=== PATIENT | female | born 1990 | race American Indian/Alaskan Native ===

== ENCOUNTER 2017-10-17 15:37 | Emergency (ER) | payer OTHER ==
[2017-10-17 15:57] VITALS: BP 131/81
--- NOTE | 2017-10-17 17:01 | Emergency Department Report ---
ED Dysuria HPI - HPI Chief Complaint: Urogenital-Female Stated Complaint: VAGINAL DISCHARGE/ODOR Time Seen by Provider: 10/17/17 16:53 Duration: 5 Days Severity: Mild Symptoms: Dysuria: No, Frequency: No, Suprapubic Pain: No, Flank Pain: No, Fever : No, Hematuria: No, Abdominal Pain: No, Previous UTI's: No ED Review of Systems ROS: Stated complaint: VAGINAL DISCHARGE/ODOR Other details as noted in HPI Comment: All other systems reviewed and negative Gastrointestinal: denies: abdominal pain, nausea, vomiting, diarrhea, constipation, hematemesis, melena Genitourinary: discharge. denies: urgency, dysuria, frequency, hematuria, abnormal menses, dyspareunia Musculoskeletal: denies: back pain ED Past Medical Hx - Past Medical History Additional medical history: PCOS - Surgical History Past Surgical History?: No - Social History Smoking Status: Never Smoker Substance Use Type: Alcohol Dysuria Exam - Exam General: Vital signs noted. No distress. Alert and acting appropriately. Exam: Yes Moist Mucous Membranes, No CVA Tenderness, No Abdominal Tenderness, No Rigidity or Guarding ED Course Vital Signs 10/17/17 15:55 Temperature 98.3 F Pulse Rate 86 Respiratory 20 Rate Blood Pressure 131/81 O2 Sat by Pulse 100 Oximetry - Reevaluation(s) Reevaluation #1: 10/17/17 18:23 27 YO AA FEM TO ER W VAG DC FOR MONTHS SHE STATES BLOOD TINGED AFTER SEX W PERSON IT STARTED CONCERNED FOR STD HAS DUB HAS NOT SEEN OB IN 1 Y NEW TO AREA NO BACK PAIN NO FEVER NO ABD PAIN NO CVA TENDERNESS PREG NEG URINE NOTED- MENSES WET PREP NOTED ON EXAM SMALL DARK DC NO LESIONS; MALODOROUS DISCUSSED W PT SHE WANTS TX FOR GC AND CX ARE PENDING FROM THE LAB DISCUSSED W PT NEED TO SEE OB FOR HER ANNUAL PAP FOR HER BLEEDING/SPOTTING G0 HX STD X 1 IN PAST PER PT CONSTRICTED WITH INFORMATION MEDICATED DC HOME W DC POC ED Medical Decision Making - Medical Decision Making SEE NOTE - Differential Diagnosis UTI V STD V DUB Critical care attestation.: If time is entered above; I have spent that time in minutes in the direct care of this critically ill patient, excluding procedure time. ED Disposition Clinical Impression: Concern about STD in female without diagnosis, Vaginitis, Dysmenorrhea Disposition: DC- TO HOME OR SELFCARE Is pt being admited?: No Does the pt Need Aspirin: No Condition: Stable Instructions: Dysfunctional Uterine Bleeding (ED), Sexually Transmitted Diseases (ED) Additional Instructions: HYDRATE WELL WITH WATER MOTRIN OR TYLENOL FOR PAIN YOU HAVE BEEN TREATED FOR GONNORHEA AND CHLAMYDIA YEAST, TRICH AND BV WHERE NORMAL. NEGATIVE FOLLOW UP WITH OBGYN - SEE BELOW WITHIN 1 WEEK TO EVALUATE YOU FURTHER RETURN TO ER FOR SEVERE ABDOMINAL PAIN OR FEVER Referrals: PRIMARY MD VENKATA [Primary Care Provider] - 3-5 Days MAAME LIU MD [Staff Physician] - 3-5 Days Time of Disposition: 18:03
[2017-10-17 17:02] LABS: Bacteria,Urine 1+ /HPF (Negative); Bilirubin,Urine NEG (Negative); Blood,Urine LG (Negative); Color,Urine Yellow (Yellow); Mucus,Urine FEW /HPF; Nitrite,Urine NEG (Negative); Protein,Urine <15 mg/dL mg/dL (Negative); Urobilinogen,Urine < 2.0 mg/dL (<2.0)
[2017-10-17 17:04] LABS: HCG Qualitative,Urine Negative (Negative)
[2017-10-17] MEDS ORDERED: XYLOCAINE 1% MPF 5 mL INFILTRATI ONE (18:04)
[2017-10-17] MEDS ORDERED: ZITHROMAX PO ONE (18:04)
[2017-10-17] MEDS ORDERED: ROCEPHIN IM ONE (18:04)
== END 2017-10-17 18:35 | disposition home or self-care (01) ==
LOC: ED 15:37
DX: N76.0 Acute vaginitis (principal); N94.6 Dysmenorrhea, unspecified; E28.2 Polycystic ovarian syndrome
CPT/HCPCS: 81001; 81025; 87210; 87591; 96372; 99284; J0696